=== PATIENT | female | born 1955 | race Caucasian/White ===

== ENCOUNTER 2021-04-29 09:51 | Emergency (ER) | payer OTHER ==
[~2021-04-29] VITALS: Ht 157.5 cm; Wt 78.0 kg
[2021-04-29] MEDS ORDERED: HYDROCODONE/ACETAMINOPHEN 5/325MG TABLET PO ONE (11:00)
[2021-04-29 11:14] VITALS: BP 159/128
[2021-04-29] MEDS ORDERED: MAGN296S31 MT (12:10)
[2021-04-29] MEDS ORDERED: ANUHCC TP (12:10)
== END 2021-04-29 13:58 | disposition home or self-care (01) ==
LOC: ER 09:51
DX: K64.9 Unspecified hemorrhoids (principal); I10 Essential (primary) hypertension; E78.00 Pure hypercholesterolemia, unspecified; Z86.39 Personal history of other endocrine, nutritional and metabolic disease
CPT/HCPCS: 74018; 99283

== ENCOUNTER 2022-08-15 13:15 | Emergency (ER) | payer MEDICARE, MEDICAID ==
[~2022-08-15] VITALS: Ht 160 cm; Wt 80.0 kg
[~2022-08-15 13:15] MED LIST: ANUHCC TP; MAGN296S8 MT
[2022-08-15 13:40] VITALS: BP 112/89; PULSE 57; RESP 16; O2SAT 96
[2022-08-15 16:45] VITALS: TEMP 98.3
[2022-08-15] MEDS ORDERED: ACETAMINOPHEN 325MG TABLET PO ONE (16:45)
[2022-08-15] MEDS ORDERED: NAPR-1129 MT (18:10)
== END 2022-08-15 18:47 | disposition home or self-care (01) ==
LOC: ER 13:15
DX: S49.91XA Unspecified injury of right shoulder and upper arm, initial encounter (principal); I10 Essential (primary) hypertension; E78.00 Pure hypercholesterolemia, unspecified; Z86.39 Personal history of other endocrine, nutritional and metabolic disease; W18.30XA Fall on same level, unspecified, initial encounter; Y93.01 Activity, walking, marching and hiking; Y92.89 Other specified places as the place of occurrence of the external cause; Y99.8 Other external cause status
CPT/HCPCS: 70486; 73030; 73060; 99284